=== PATIENT | male | born 1970 | race Caucasian/White ===

== ENCOUNTER 2017-05-10 16:31 | Emergency (ER) | payer BC, OTHER ==
[~2017-05-10] VITALS: Ht 182.9 cm; Wt 68.4 kg
[2017-05-10 16:37] VITALS: Ht 182.9 cm; Wt 68.4 kg
[2017-05-10] MEDS ORDERED: ONDANSETRON INJ 2 MG/ML 2 ML VIAL IV STA (17:09)
[2017-05-10 17:59] LABS: BASO % 0.6 %; BASO ABS # 0.03 K/uL (0-0.2); COMPLETE YES; EOS % 3.5 %; HEMATOCRIT 39.6 % (42-52); IG% 0.2 %; LYMPH % 33.6 %; LYMPH ABS # 1.83 K/uL (1.2-3.4); MEAN CORPUSCULAR HEMOGLOBIN 28.1 pg (25-34); MEAN CORPUSCULAR HGB CONC 33.1 g/dl (32-36); MEAN PLATELET VOLUME 9.2 fL (7.4-10.4); MONO % 6.3 %; NEUT % 55.8 %; PLATELET COUNT 322 K/uL (130-400); RED BLOOD COUNT 4.66 M/uL (4.7-6.1); WHITE BLOOD COUNT 5.44 K/uL (4.8-10.8)
--- NOTE | 2017-05-10 18:05 | DIAGNOSTIC IMAGING REPORT ---
CT SCAN OF THE ABDOMEN AND PELVIS WITHOUT IV CONTRAST CLINICAL HISTORY: Generalized abdominal pain. Melena. COMPARISON STUDY: No priors. TECHNIQUE: CT scan of the abdomen and pelvis is performed from the lung bases to the proximal femora. Images are reviewed in the axial, sagittal, and coronal planes. IV contrast was not administered for this examination as per the front clinician. Note that the examination was performed in significantly suboptimal fashion without oral and IV contrast. Automated dose control exposure was utilized. CT DOSE: 262.31 mGy.cm FINDINGS: Lung bases: The heart is normal in size and without pericardial effusion. The lung bases are clear. Liver: The unenhanced liver is normal in size, contour, and attenuation. There is no intrahepatic biliary ductal dilatation. Gallbladder: Unremarkable. Spleen: Normal in size and attenuation. Pancreas: Unremarkable. Adrenal glands: Unremarkable. Kidneys: The unenhanced kidneys are normal in size and without hydronephrosis. There is a 6 mm nonobstructing left calculus. No right renal calculi are identified. There is no evidence of contour deforming renal mass lesion. Abdominal vasculature: The abdominal aorta is normal in course and caliber. Bowel: The small bowel and colon are normal in course and caliber. There is mild colonic fecal retention. The appendix is normal as visualized. Peritoneum: There is no intraperitoneal free air or abdominal ascites. Lymphadenopathy: None. Pelvic viscera: The bladder, prostate, and seminal vesicles are normal as imaged. Skeletal structures: No lytic or blastic lesions are seen. IMPRESSION: 1. Suboptimal examination without oral and IV contrast. 2. There are no acute infectious or inflammatory findings in the abdomen or pelvis. 3. Nonobstructing left renal calculus. Electronically signed by: Steve Trammell M.D. 05/10/2017 6:04 PM Dictated Date/Time: 05/10/2017 5:58 PM
[2017-05-10] MEDS ORDERED: PANTOprazole SOD 40 MG TAB PO STA (18:10)
[2017-05-10 18:20] LABS: BUN/CREATININE RATIO 11.5 (10-20); CALCIUM 9.5 mg/dl (8.5-10.1); CREATININE 1.1 mg/dl (0.60-1.40); POTASSIUM 3.7 mmol/L (3.5-5.1)
[2017-05-10] MEDS ORDERED: PRT/20 PO (18:28)
[2017-05-10 18:52] VITALS: BP 125/82; PULSE 56; TEMP 36.9; O2SAT 100
--- NOTE | 2017-05-10 20:17 | EMERGENCY ROOM VISIT NOTE ---
History Report prepared by Gina: Alta Cleveland Under the Supervision of: Dr. Dyllan Gutierrez M.D. First contact with patient: 16:58 Chief Complaint: GI ASSESSMENT Stated Complaint: HEARTBURN,BELCHING, ABD PAIN,BLOODY STOOLS Nursing Triage Summary: Pt states approx 1 mo ago started heartburn everyday, worse at night when lying down. "Every time I try to eat I start hiccuping. My throat feels like a pill is there that I can't swallow. For the past three day I started having blood stools. I recently moved here and don't have a dr yet so I called my regular dr and they told me to come here." Denies hx of similar sx. History of Present Illness The patient is a 46 year old male who presents to the Emergency Room for a GI assessment. The patient states that for the past month he has started experiencing heart burn for the "first time ever." He reports burning pain in his epigastrium and a generally sore abdomen. His symptoms are worse when he lies on his chest, while lying on his back helps to relieve some of his pain. One week ago he developed hiccups every time that he eats. He also reports increased belching. For the past few days he has been having pain with swallowing and feels like there is something stuck in his throat when he swallows. The patient has noticed hematochezia over the past two days. He denies any melena. He is having formed stools and denies diarrhea. He also notes feeling warm and sweaty today. The patient rates his pain as a 4/10 in severity. He denies urinary symptoms and vomiting. He denies any family history of Crohn's Disease or ulcerative colitis. He does not take a lot of NSAIDs. He does not take aspirin. The patient called his PCP today and was advised to come to the ED for further evaluation. Source of History: patient Onset: 1 month ago Position: abdomen Symptom Intensity: 4/10 Quality: burning Timing: intermittent Modifying Factors (Worsening): other (lying on chest) Modifying Factors (Relieving): other (lying on back) Associated Symptoms: + diaphoresis, + abdominal pain, + hematochezia, No vomiting, No melena, No urinary symptoms Review of Systems See HPI for pertinent positives & negatives. A total of 10 systems reviewed and were otherwise negative. Past Medical & Surgical Medical Problems: (1) Onychia of finger Family History No pertinent history stated. Social History Smoking Status: Light Tobacco Smoker Occupation Status: employed Current/Historical Medications Scheduled Pantoprazole (Protonix), 40 MG PO DAILY Allergies Coded Allergies: No Known Allergies (Unverified , 05/10/17) Physical Exam Vital Signs Date Time Temp Pulse Resp B/P (MAP) Pulse Ox O2 Delivery O2 Flow Rate FiO2 05/10/17 18:52 36.9 56 18 125/82 100 05/10/17 18:48 56 18 125/82 100 Room Air 05/10/17 18:05 56 16 111/69 97 Room Air 05/10/17 16:37 36.9 66 18 125/78 100 Room Air Physical Exam Constitutional: Vital signs reviewed. Eyes: Pupils are equal round reactive to light. Conjunctiva are noninjected. ENT: Pharynx is clear without erythema or exudate. Mucous membranes are moist. Neck supple without meningeal signs. Respiratory: Clear to auscultation bilaterally. Breath sounds are equal bilaterally. Cardiovascular: Regular rate and rhythm. No rubs or gallops. GI: Soft, nondistended, diffuse abdominal tenderness with voluntary guarding. Bowel sounds are present. Rectal: Guaiac positive dark stool. Musculoskeletal: No peripheral edema. No lower extremity tenderness. Integumentary: No cyanosis. Neurological: The patient is awake and alert. No focal deficits. Psychiatric: Normal affect. Medical Decision & Procedures ER Provider Diagnostic Interpretation: Radiology results as stated below per my review and the radiologist's interpretation: CT SCAN OF THE ABDOMEN AND PELVIS WITHOUT IV CONTRAST CLINICAL HISTORY: Generalized abdominal pain. Melena. COMPARISON STUDY: No priors. TECHNIQUE: CT scan of the abdomen and pelvis is performed from the lung bases to the proximal femora. Images are reviewed in the axial, sagittal, and coronal planes. IV contrast was not administered for this examination as per the front clinician. Note that the examination was performed in significantly suboptimal fashion without oral and IV contrast. Automated dose control exposure was utilized. CT DOSE: 262.31 mGy.cm FINDINGS: Lung bases: The heart is normal in size and without pericardial effusion. The lung bases are clear. Liver: The unenhanced liver is normal in size, contour, and attenuation. There is no intrahepatic biliary ductal dilatation. Gallbladder: Unremarkable. Spleen: Normal in size and attenuation. Pancreas: Unremarkable. Adrenal glands: Unremarkable. Kidneys: The unenhanced kidneys are normal in size and without hydronephrosis. There is a 6 mm nonobstructing left calculus. No right renal calculi are identified. There is no evidence of contour deforming renal mass lesion. Abdominal vasculature: The abdominal aorta is normal in course and caliber. Bowel: The small bowel and colon are normal in course and caliber. There is mild colonic fecal retention. The appendix is normal as visualized. Peritoneum: There is no intraperitoneal free air or abdominal ascites. Lymphadenopathy: None. Pelvic viscera: The bladder, prostate, and seminal vesicles are normal as imaged. Skeletal structures: No lytic or blastic lesions are seen. IMPRESSION: 1. Suboptimal examination without oral and IV contrast. 2. There are no acute infectious or inflammatory findings in the abdomen or pelvis. 3. Nonobstructing left renal calculus. Electronically signed by: Steve Trammell M.D. 05/10/2017 6:04 PM Dictated Date/Time: 05/10/2017 5:58 PM Laboratory Results 05/10/17 17:41 Red Blood Count 4.66, Mean Corpuscular Volume 85.0, Mean Corpuscular Hemoglobin 28.1, Mean Corpuscular Hemoglobin Concent 33.1, Mean Platelet Volume 9.2, Neutrophils (%) (Auto) 55.8, Lymphocytes (%) (Auto) 33.6, Monocytes (%) (Auto) 6.3, Eosinophils (%) (Auto) 3.5, Basophils (%) (Auto) 0.6, Neutrophils # (Auto) 3.04, Lymphocytes # (Auto) 1.83, Monocytes # (Auto) 0.34, Eosinophils # (Auto) 0.19, Basophils # (Auto) 0.03 05/10/17 17:41 Test 05/10/17 17:41 White Blood Count 5.44 K/uL (4.8-10.8) Red Blood Count 4.66 M/uL (4.7-6.1) Hemoglobin 13.1 g/dL (14.0-18.0) Hematocrit 39.6 % (42-52) Mean Corpuscular Volume 85.0 fL (80-100) Mean Corpuscular Hemoglobin 28.1 pg (25-34) Mean Corpuscular Hemoglobin Concent 33.1 g/dl (32-36) Platelet Count 322 K/uL (130-400) Mean Platelet Volume 9.2 fL (7.4-10.4) Neutrophils (%) (Auto) 55.8 % Lymphocytes (%) (Auto) 33.6 % Monocytes (%) (Auto) 6.3 % Eosinophils (%) (Auto) 3.5 % Basophils (%) (Auto) 0.6 % Neutrophils # (Auto) 3.04 K/uL (1.4-6.5) Lymphocytes # (Auto) 1.83 K/uL (1.2-3.4) Monocytes # (Auto) 0.34 K/uL (0.11-0.59) Eosinophils # (Auto) 0.19 K/uL (0-0.5) Basophils # (Auto) 0.03 K/uL (0-0.2) RDW Standard Deviation 40.4 fL (36.4-46.3) RDW Coefficient of Variation 13.1 % (11.5-14.5) Immature Granulocyte % (Auto) 0.2 % Immature Granulocyte # (Auto) 0.01 K/uL (0.00-0.02) Anion Gap 5.0 mmol/L (3-11) Est Creatinine Clear Calc Drug Dose 82.9 ml/min Estimated GFR () 94.1 Estimated GFR (Non- 81.2 BUN/Creatinine Ratio 11.5 (10-20) Calcium Level 9.5 mg/dl (8.5-10.1) Total Bilirubin 0.4 mg/dl (0.2-1) Direct Bilirubin 0.1 mg/dl (0-0.2) Aspartate Amino Transf (AST/SGOT) 22 U/L (15-37) Alanine Aminotransferase (ALT/SGPT) 24 U/L (12-78) Alkaline Phosphatase 69 U/L (45-117) Total Protein 8.6 gm/dl (6.4-8.2) Albumin 4.5 gm/dl (3.4-5.0) Lipase 177 U/L (73-393) Laboratory results as reviewed by me. Medications Administered Medications (Trade) Dose Ordered Sig/Eva Route Start Time Stop Time Status Last Admin Dose Admin Pantoprazole Sodium (Protonix Tab) 40 mg NOW STAT PO 05/10/17 18:10 05/10/17 18:11 DC 05/10/17 18:10 40 MG ED Course 165: The patient was evaluated in room A9B. A complete history and physical exam was performed. 1708: Zofran 4 mg IV - pt declined 1809: Protonix 40 mg PO 1816: I updated the patient on his results. 1830: I reassessed the patient at this time. He is feeling better and resting comfortably. I discussed the results and treatment plan with the patient. I answered all pertaining that he had. He expressed understanding and verbalized agreement. The patient will be discharged home. Medical Decision This is a 46-year-old male who presents with abdominal pain and rectal bleeding. Differential diagnosis includes peptic ulcer disease, GERD, esophagitis, inflammatory bowel disease, hemorrhoids, AVM. I did perform a limited focused review of portions of the patient's old chart on the electronic medical record. The patient has had no recent pertinent visits to this hospital. Medication Reconciliation: I attest that I have personally reviewed the patient' s current medication list. Blood Pressure Screening: Patient was found to have a slightly elevated blood pressure due to circumstances. I do not believe that the patient requires hypertension monitoring. I did evaluate the patient as noted above. The patient has been having heartburn symptoms for the past month. Symptoms seem consistent with reflux disease. I did do a rectal examination which showed guaiac positive dark stool. He does have diffuse tenderness of his abdomen. IV access was established. I did order and personally review the patient's 12-lead EKG and chest x-ray as described above. I did order and review the patient's blood work as noted in the electronic medical record. His hemoglobin is 13. LFTs and lipase are unremarkable. I did order a CT of the abdomen and pelvis. I did review the images myself as well as the radiology report as described above. There is no evidence of acute abnormality on CT scan. He does have a left intrarenal stone. I did discuss the test results with the patient. I did treat him with Protonix.I did recommend he follow up with his regular physician as well as a senior counsel commercial for outpatient EGD and colonoscopy. He was referred to Dr. marie. He was given return instructions as outlined below and discharged in good condition with a prescription for Protonix. Impression Primary Impression: Diffuse abdominal pain Additional Impression: Rectal bleed Scribe Attestation The scribe's documentation has been prepared under my direct and personally reviewed by me in its entirety. I confirm that the note above accurately reflects all work, treatment, procedures, and medical decision making performed by me. Departure Information Dispostion Home / Self-Care Prescriptions Pantoprazole (Protonix) 20 Mg Tab 40 MG PO DAILY for 20 Days, #40 TAB Prov: Dyllan Gutierrez M.D. 05/10/17 Referrals No Doctor, Assigned (PCP) Chidi Marie D.O. Forms HOME CARE DOCUMENTATION FORM, IMPORTANT VISIT INFORMATION Patient Instructions ED Abdominal Pain Unkn Cause Male, ED Hematochezia Stable, My [facility] Additional Instructions You have been examined and treated today on an emergency basis only. This is not a substitute for, or an effort to provide, complete comprehensive medical care. It is impossible to recognize and treat all injuries or illnesses in a single emergency department visit. It is therefore important that you follow up closely with your physician and Dr. Marie of gastroenterology. Call as soon as possible for an appointment. You will need an outpatient EGD and colonoscopy. Return for worsening symptoms or if you develop fever, vomiting, lightheadedness or any other concerning symptoms. Problem Qualifiers
== END 2017-05-10 18:52 | disposition home or self-care (01) ==
LOC: C.EDB 16:33 → C.EDA 18:52
DX: R10.9 Unspecified abdominal pain (principal); K62.5 Hemorrhage of anus and rectum; F17.200 Nicotine dependence, unspecified, uncomplicated; Z79.899 Other long term (current) drug therapy